=== PATIENT | male | born 1990 | race Caucasian/White ===

== ENCOUNTER → 2016-09-20 | Outpatient (CLI) | payer OTHER | LOC: RAD 14:50 | DX: M54.5 Low back pain (principal); M54.6 Pain in thoracic spine; M54.2 Cervicalgia; M47.816 Spondylosis without myelopathy or radiculopathy, lumbar region | CPT/HCPCS: 72040; 72072; 72100; 72220 ==

== ENCOUNTER → 2020-07-04 | Outpatient (CLI) | payer OTHER | LOC: KOH-I 10:05 | DX: M54.5 Low back pain (principal) | CPT/HCPCS: 72148 ==